=== PATIENT | female | born 1970 | race Caucasian/White ===

== ENCOUNTER 2024-11-22 12:51 | Outpatient (CLI) | payer OTHER, SELFPAY ==
--- NOTE | ~2024-11-22 | CT_ITS ---
EXAMINATION: CT soft tissue neck w con DATE: 11/22/2024 13:25 INDICATION: Peritonsillar abscess TECHNIQUE: Computed tomography (CT) of the neck was performed with 75 mL Omnipaque-350 intravenous contrast. Automated exposure control and iterative reconstruction technique were employed. The dose-length product was 353.53 mGy-cm. COMPARISON: None FINDINGS: Orbits are normal. The paranasal sinuses are clear. Mastoid air cells and middle ear cavities are clear. Submandibular and parotid glands are normal and symmetric. Thyroid gland is unremarkable. There are scattered normal-sized lymph nodes in the neck, no lymphadenopathy. No masses identified. No peritonsillar abscess or other abnormal fluid collections. The vasculature is patent and normal in caliber. Airway is unremarkable. Superior mediastinum is unremarkable. Mild biapical pleural-parenchymal scarring. Small calcified right upper lobe nodule consistent with old granulomatous disease. IMPRESSION: 1. Unremarkable CT of the soft tissues of the neck with no evident peritonsillar abscess. Reviewed, dictated and finalized at location A. IMPRESSION: 1. Unremarkable CT of the soft tissues of the neck with no evident peritonsilla r abscess.
== END 2024-11-22 12:52 | disposition home or self-care (01) ==
LOC: MICIMG 12:55
PROVIDERS: Visit Provider Nurse Practitioner Family
DX: J03.90 Acute tonsillitis, unspecified (principal); R09.A2 Foreign body sensation, throat
CPT/HCPCS: 70491; Q9967